=== PATIENT | female | born 1990 | race Caucasian/White ===

== ENCOUNTER 2020-09-24 18:03 | Inpatient (IN) | payer BC ==
[2020-09-24] MEDS ORDERED: Methylergonovine 0.2 MG/1 ML Amp IM PRN (18:27)
[2020-09-24] MEDS ORDERED: Terbutaline 1 MG/ML SDV SUBCUT PRN (18:27)
[2020-09-24] MEDS ORDERED: Water For Irrigation,Sterile 1,000 ML Container IRR PRN (18:27)
[2020-09-24] MEDS ORDERED: Misoprostol 200 MCG Tab PO PRN (18:27)
[2020-09-24] MEDS ORDERED: Nalbuphine 10 MG/1 ML Vial IVPUSH PRN (18:27)
[2020-09-24] MEDS ORDERED: Sodium Chloride 0.9% 10 ML SDV IV PRN (18:27)
[2020-09-24] MEDS ORDERED: Butorphanol 1 MG/ML SDV IVPUSH PRN (18:27)
[2020-09-24] MEDS ORDERED: Misoprostol 25 MCG (1/4 of 100 MCG) Tab VAG PRN (18:27)
[2020-09-24] MEDS ORDERED: Ondansetron 4 MG/2 ML SDV IVPUSH PRN (18:27)
[2020-09-24] MEDS ORDERED: Tranexamic Acid 1,000 MG in Sodium Chloride 0.9% 100 ML IV PRN (18:27)
[2020-09-24] MEDS ORDERED: Lidocaine 1% 50 ML MDV INJECT PRN (18:27)
[2020-09-24] MEDS ORDERED: Sodium Chloride 0.9% 10 ML Syringe FLUSH PRN (18:27)
[2020-09-24] MEDS ORDERED: Sodium Chloride 0.9% 2.5 ML Syringe FLUSH PRN (18:27)
[2020-09-24] MEDS ORDERED: Carboprost Tromethamine 250 MCG/1 ML Amp IM PRN (18:27)
[2020-09-24] MEDS ORDERED: Oxytocin/0.9 % Sodium Chloride 30 UNIT/500 ML BAG IV SCH ×2 (18:30)
[2020-09-25] MEDS: Misoprostol 25 MCG (1/4 of 100 MCG) Tab VAG PRN ×3 (00:43→09:49)
[2020-09-25] MEDS: Lactated Ringers 1,000 ML IV SCH ×3 (09:48→20:57)
[2020-09-25] MEDS ORDERED: Citric Acid/Sodium Citrate Solution 30 ML Cup PO ONE (17:04)
[2020-09-25] MEDS ORDERED: ceFAZolin 1 GM in Premix Bag 1 BAG IV ONE (17:13)
[2020-09-25] MEDS ORDERED: ceFAZolin 2 GM in Premix Bag 1 BAG IV ONE (17:13)
[2020-09-25] MEDS ORDERED: Morphine PF 10 MG/10 ML SDV ONE (17:14)
[2020-09-25] MEDS ORDERED: Lactated Ringers 1,000 ML IV SCH (17:15)
[2020-09-25] MEDS ORDERED: Oxytocin/0.9 % Sodium Chloride 30 UNIT/500 ML BAG IV SCH (17:15)
--- NOTE | 2020-09-25 17:21 | PCM.PREANE ---
Preanesthetic Assessment - Procedure Proposed Procedure: CS for non-reassuring heart tones. - Anesthesia/Transfusion/Family Hx Anesthesia History: No Prior Anesthesia (Local anesthetic for tooth extraction without incident) Family History of Anesthesia Reaction: No (Mom was "hard to put to sleep" and "took a lot" but no true anesthesia reactions) Transfusion History: No Prior Transfusion(s) Additional History: oligohydraminos with current . Obesity with increased neck circumference. - Review of Systems General: No Symptoms Pulmonary: No Symptoms Cardiovascular: No Symptoms Gastrointestinal: No Symptoms Neurological: No Symptoms Other: Reports: None - Physical Assessment NPO Status Date: 09/25/20 (1100 for food, 1500 for clears) NPO Status Time: 11:00 Vital Signs: Last Vital Signs Temp 36.7 C 09/25/20 09:12 Pulse 89 09/25/20 09:12 Resp 20 09/25/20 09:12 BP 112/58 L 09/25/20 09:12 Pulse Ox 94 L 09/25/20 09:12 Height: 1.71 m Weight: 143.789 kg ASA Class: 2E Mental Status: Alert & Oriented x3 Dentition: Reports: Normal Dentition Thyro-Mental Finger Breadths: 4 Mouth Opening Finger Breadths: 3 ROM/Head Extension: Full Lungs: Normal Respiratory Effort Cardiovascular: Regular Rate, Regular Rhythm - Lab Values: Laboratory Last Values WBC 7.91 K/uL (4.0-11.0) 09/24/20 18:46 RBC 4.11 M/uL (4.30-5.90) L 09/24/20 18:46 Hgb 11.5 g/dL (12.0-16.0) L 09/24/20 18:46 Hct 34.5 % (36.0-46.0) L 09/24/20 18:46 MCV 83.9 fL (80.0-98.0) 09/24/20 18:46 MCH 28.0 pg (27.0-32.0) 09/24/20 18:46 MCHC 33.3 g/dL (31.0-37.0) 09/24/20 18:46 RDW Std Deviation 43.7 fl (28.0-62.0) 09/24/20 18:46 RDW Coeff of Gregoria 14 % (11.0-15.0) 09/24/20 18:46 Plt Count 326 K/uL (150-400) 09/24/20 18:46 MPV 10.80 fL (7.40-12.00) 09/24/20 18:46 Nucleated RBC % 0.0 /100WBC 09/24/20 18:46 Nucleated RBCs # 0 K/uL 09/24/20 18:46 SARS-CoV-2 RNA (OSORIO) NEGATIVE (NEGATIVE) 09/24/20 18:21 Blood Type B POSITIVE 09/24/20 21:24 Antibody Screen NEGATIVE 09/24/20 21:24 - Allergies Allergies/Adverse Reactions: Allergies Allergy/AdvReac Type Severity Reaction Status Date / Time cat dander Allergy Difficulty Verified 09/24/20 19:46 Breathing dog dander Allergy Difficulty Verified 09/24/20 19:46 Breathing - Blood Blood Available: Yes - Anesthesia Plan Pre-Op Medication Ordered: None - Acknowledgements Anesthesia Type Planned: Spinal Pt an Appropriate Candidate for the Planned Anesthesia: Yes Alternatives and Risks of Anesthesia Discussed w Pt/Guardian: Yes Pt/Guardian Understands and Agrees with Anesthesia Plan: Yes Additional Comments: Discussed spinal anesthesia, as well as possibility of GA with patient and S.O.. Described risks, benefits, procedure, alternatives, and anesthesia recovery. All questions answered and concerns addressed. Consent signed with RN witness. 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 DOCUMENTATION SPEC History: Reports: , Spontaneous Musculoskeletal History: Reports: Fracture, Other (See Below) Other Musculoskeletal History: right foot fracture at age 6 years - Infectious Disease History Infectious Disease History: Reports: Chicken Pox - Past Surgical History HEENT Surgical History: Reports: None Musculoskeletal Surgical History: Reports: None - SUBSTANCE USE Tobacco Use Status *Q: Former Tobacco User Tobacco Use Within Last Twelve Months: Cigarettes Second Hand Smoke Exposure: No Recreational Drug Use History: No - HOME MEDS Home Medications: Home Meds Vits #93/Iron Fum/FA [ Formula Tablet] 1 each PO DAILY 09/24/20 [History] - CURRENT (IN HOUSE) MEDS Current Meds: Current Medications Butorphanol Tartrate (Butorphanol 1 Mg/Ml Sdv) 1 mg IVPUSH Q1H PRN PRN Reason: Pain Carboprost Tromethamine (Carboprost Tromethamine 250 Mcg/1 Ml Amp) 250 mcg IM ASDIRECTED PRN PRN Reason: Post Hemorrhage Oxytocin/Sodium Chloride (Oxytocin 30 Unit/500 Ml-Ns) 30 unit in 500 mls @ 500 mls/hr IV TITRATE ALISTAIR Tranexamic Acid 1,000 mg/ (Sodium Chloride) 110 mls @ 660 mls/hr IV ONETIME PRN PRN Reason: Bleeding Oxytocin/Sodium Chloride (Oxytocin 30 Unit/500 Ml-Ns) 30 unit in 500 mls @ 2 mls/hr IV TITRATE ALISTAIR; Protocol Last Admin: 09/25/20 15:27 Dose: 2 munits/min, 2 mls/hr Documented by: Lactated Ringer's (Ringers, Lactated) 1,000 mls @ 150 mls/hr IV ASDIRECTED ALISTAIR Last Admin: 09/25/20 16:40 Dose: 150 mls/hr Documented by: Lactated Ringer's (Ringers, Lactated) 1,000 mls @ 500 mls/hr IV BOLUS ALISTAIR Oxytocin/Sodium Chloride (Oxytocin 30 Unit/500 Ml-Ns) 30 unit in 500 mls @ 250 mls/hr IV TITRATE ALISTAIR Cefazolin Sodium/Dextrose 1 gm (/ Premix) 50 mls @ 100 mls/hr IV ONETIME ONE Stop: 09/25/20 17:42 Cefazolin Sodium/Dextrose 2 gm (/ Premix) 50 mls @ 100 mls/hr IV ONETIME ONE Stop: 09/25/20 17:42 Lidocaine HCl (Lidocaine 1% 50 Ml Mdv) 50 ml INJECT ONETIME PRN PRN Reason: Laceration repair Methylergonovine Maleate (Methylergonovine 0.2 Mg/1 Ml Amp) 0.2 mg IM ASDIRECTED PRN PRN Reason: Post Hemorrhage Misoprostol (Misoprostol 200 Mcg Tab) 200 mcg PO ONETIME PRN PRN Reason: Post Hemorrhage Misoprostol (Misoprostol 25 Mcg (1/4 Of 100 Mcg) Tab) 25 mcg VAG ONETIME PRN PRN Reason: Cervical Ripening Last Admin: 09/24/20 20:35 Dose: 25 mcg Documented by: Misoprostol (Misoprostol 25 Mcg (1/4 Of 100 Mcg) Tab) 25 mcg VAG Q4H PRN PRN Reason: Cervical Ripening Last Admin: 09/25/20 09:49 Dose: 25 mcg Documented by: Nalbuphine HCl (Nalbuphine 10 Mg/1 Ml Vial) 10 mg IVPUSH Q1H PRN PRN Reason: Pain (severe 7-10) Ondansetron HCl (Ondansetron 4 Mg/2 Ml Sdv) 4 mg IVPUSH Q6H PRN PRN Reason: Nausea/Vomiting Sodium Chloride (Sodium Chloride 0.9% 10 Ml Syringe) 10 ml FLUSH ASDIRECTED PRN PRN Reason: Keep Vein Open Sodium Chloride (Sodium Chloride 0.9% 2.5 Ml Syringe) 2.5 ml FLUSH ASDIRECTED PRN PRN Reason: Keep Vein Open Sodium Chloride (Sodium Chloride 0.9% 10 Ml Sdv) 10 ml IV ASDIRECTED PRN PRN Reason: IV Use Sterile Water (Water For Irrigation,Sterile 1,000 Ml Container) 1,000 ml IRR ASDIRECTED PRN PRN Reason: delivery Terbutaline Sulfate (Terbutaline 1 Mg/Ml Sdv) 0.25 mg SUBCUT ASDIRECTED PRN PRN Reason: Tacysystole Discontinued Medications Citric Acid/Sodium Citrate (Citric Acid/Sodium Citrate Solution 30 Ml Cup) 30 m l PO ONETIME ONE Stop: 09/25/20 17:05 Morphine Sulfate (Morphine Pf 10 Mg/10 Ml Sdv) Confirm Administered Dose 10 mg .ROUTE .STK-MED ONE Stop: 09/25/20 17:15
[2020-09-25] MEDS ORDERED: fentaNYL 100 MCG/2 ML SDV ONE (17:24)
[2020-09-25] MEDS ORDERED: Dexamethasone 4 MG/ML 5 ML MDV ONE (17:25)
[2020-09-25] MEDS ORDERED: Propofol 200 MG/20 ML SDV ONE (17:25)
[2020-09-25] MEDS ORDERED: Ketorolac 30 MG/ML SDV ONE (17:25)
[2020-09-25] MEDS ORDERED: Ondansetron 4 MG/2 ML SDV ONE (17:25)
[2020-09-25] MEDS ORDERED: Sodium Chloride 0.9% 20 ML ONE (17:26)
[2020-09-25] MEDS ORDERED: ceFAZolin 1 GM Vial ONE (17:26)
[2020-09-25] MEDS ORDERED: ePHEDrine 50 MG/ML SDV ONE (17:57)
[2020-09-25] MEDS ORDERED: Lanolin 100% Cream 7 GM Tube TOP PRN (18:43)
[2020-09-25] MEDS ORDERED: diphenhydrAMINE 50 MG/ML SDV IVPUSH PRN (18:43)
[2020-09-25] MEDS ORDERED: Acetaminophen/oxyCODONE 325-5 MG Tab PO PRN (18:43)
[2020-09-25] MEDS ORDERED: Ondansetron 4 MG/2 ML SDV IVPUSH PRN (18:43)
[2020-09-25] MEDS ORDERED: Bisacodyl 10 MG Supp RECTAL PRN (18:43)
[2020-09-25] MEDS ORDERED: Oxytocin 10 Units/1 ML SDV IM PRN (18:43)
[2020-09-25] MEDS ORDERED: Oxytocin/Lactated Ringers 30 UNIT/500 ML BAG IV SCH (18:45)
[2020-09-25] MEDS: Ketorolac 30 MG/ML SDV IVPUSH SCH ×2 (18:45→23:51)
--- NOTE | 2020-09-25 19:03 | PCM.OPNOTE ---
- General Post-Op/Procedure Note Date of Surgery/Procedure: 09/25/20 Operative Procedure(s): Primary low-transverse section Findings: Live male infant, cephalic presentation, Apgars 5/8, weight 3610g, umbilical cord gases pending Normal-appearing uterus, ovaries, and tubes Pre Op Diagnosis: 30yo @ 40w2d. intolerance of labor, persistent category 2 heart tones. Induction of labor for oligohydramnios. Maternal obesity Post-Op Diagnosis: 30yo @ 40w2d. intolerance of labor, persistent category 2 heart tones. Induction of labor for oligohydramnios. Maternal obesity Anesthesia Technique: Spinal Primary Surgeon: Adilene Macias Anesthesia Provider: Marcus Fontana Pathology: Placenta, umbilical cord gases, umbilical cord blood Fluid Replacement, Intraop: 800 Output, Urine Amount: 500 EBL in mLs: 500 Complications: None Condition: Good Free Text/Narrative:: 3g Ancef given for antibiotic prophylaxis
--- NOTE | 2020-09-25 19:33 | PCM.POSTAN ---
POST ANESTHESIA ASSESSMENT - MENTAL STATUS Mental Status: Alert, Oriented - VITAL SIGNS Vital Signs: Last Vital Signs Temp 36.7 C 09/25/20 09:12 Pulse 89 09/25/20 09:12 Resp 20 09/25/20 09:12 BP 112/58 L 09/25/20 09:12 Pulse Ox 94 L 09/25/20 09:12 - RESPIRATORY Respiratory Status: Respiratory Rate WNL, Airway Patent, O2 Saturation Stable - CARDIOVASCULAR CV Status: Pulse Rate WNL, Blood Pressure Stable - GASTROINTESTINAL GI Status: No Symptoms - PAIN Pain Score: 2 (Mild upper abd pain (tolerable)) - POST OP HYDRATION Hydration Status: Adequate & Stable Free Text/Narrative:: Taking clear liquids without nausea, IV fluid infusing. - OBSERVATIONS Free Text/Narrative:: Sitting up in bed and breast feeding. Adequate pain control. Spinal level regressing (T10 level)
[2020-09-25] MEDS: Docusate Sodium 100 MG Cap PO SCH (20:58)
--- NOTE | 2020-09-25 22:15 | OR ---
SURGEON: Adilene Macias MD DATE OF PROCEDURE: 09/25/2020 PREOPERATIVE DIAGNOSES: 1. 30-year-old G2, P-0-0-1-0 at 40 weeks and 2 days' gestation. 2. Induction of labor for oligohydramnios. 3. intolerance of labor with persistent category 2 heart tones. 4. Maternal obesity. POSTOPERATIVE DIAGNOSES: 1. 30-year-old G2, P-0-0-1-0 at 40 weeks and 2 days' gestation. 2. Induction of labor for oligohydramnios. 3. intolerance of labor with persistent category 2 heart tones. 4. Maternal obesity. PROCEDURE: Primary low transverse section. PRIMARY SURGEON: Adilene Macias MD ANESTHESIA: Spinal by Dr. Billy Fontana. ESTIMATED BLOOD LOSS: 500 mL. IV FLUIDS: 800 mL LR. URINE OUTPUT: 500 mL of clear yellow urine. ANTIBIOTIC PROPHYLAXIS: 2 g Ancef IV. FINDINGS: Live male in cephalic presentation. scores 5 and 8 at one and five minutes respectively. Weight 3610 g. Normal-appearing uterus, ovaries, and tubes. INDICATION: This is a 30-year-old G2, P0-0-1-0, who presented at 40 weeks and 1 day gestation from clinic for induction of labor due to oligohydramnios. She was undergoing biophysical profile and nonstress testing for maternal obesity. Her amniotic fluid index was 4 cm. Upon presentation to Labor and Delivery, her cervix was found to be 1 cm dilated. She was started on Cytotec for cervical ripening. She received 4 doses of Cytotec and was jose. After each dose of Cytotec, she would have late decelerations for roughly 1 hour that would resolve spontaneously. She underwent artificial rupture of membranes with clear fluid noted at 3 cm dilated. Intrauterine pressure catheter and scalp electrode were placed. Pitocin was started. After starting the Pitocin, heart tones were in the 150s with recurrent late and variable decelerations that were unresponsive to IV fluids and maternal repositioning. With persistence of these category 2 heart tones and minimal cervical change on 2 units of Pitocin, the decision was made to proceed with primary delivery. The risks and benefits were also discussed with the patient prior to . DESCRIPTION OF PROCEDURE: The patient was taken to the operating room, where spinal anesthesia was obtained without difficulty. She was placed in dorsal supine position with a leftward tilt. She was prepared and draped in a normal sterile fashion. A Pfannenstiel skin incision was made with a scalpel and carried through to the underlying layer of fascia. Fascia was incised in the midline and was extended laterally with curved Majano scissors. The superior aspect of the fascial incision was grasped with Richard clamps, elevated, and underlying rectus muscles dissected off bluntly. In a similar fashion, anterior aspect of the fascial incision was grasped with Richard clamps, elevated, underlying rectus muscles were dissected off bluntly. The peritoneum was identified in the midline and entered bluntly with a digit. The peritoneal incision was extended using manual traction. Next, a large Jay retractor was placed. A low uterine hysterotomy was created with a scalpel. The hysterotomy was extended using manual traction. The infant's head was delivered atraumatically followed by the remainder of body. After approximately 30 seconds, the cord was clamped and cut and the infant was handed off to awaiting nurse and venetian blind maker. Cord gases and cord blood were obtained. The placenta then delivered intact with 3-vessel cord with manual traction and uterine massage. The uterus was cleared of all clots and debris. The uterine incision was repaired with a running lock stitch of 0 Vicryl suture. A second stitch of the same suture was used to obtain hemostasis. The uterus was returned to the abdomen, and the incision was inspected, and noted to be hemostatic. The Jay retractor was removed. The vaginal incision was closed with a running stitch of 0 Vicryl suture. The subcutaneous tissue was closed with a running stitch of 3-0 Vicryl suture. Skin was closed with 4-0 Monocryl in subcuticular fashion, and the incision was covered with Steri-Strips and a pressure dressing. The patient and tolerated the delivery well. All sponge, lap, and needle counts were correct x3. [id number] / MODL /[id number] TAZ
[2020-09-26] MEDS: Lactated Ringers 1,000 ML IV SCH (05:09)
[2020-09-26] MEDS: Ketorolac 30 MG/ML SDV IVPUSH SCH ×3 (06:47→19:00)
--- NOTE | 2020-09-26 10:06 | PCM.PNPP ---
- General Info Date of Service: 09/26/20 Subjective Update: Able to tolerate breakfast this morning without nausea. Has not ambulated or voided yet; grimaldo still in place. Functional Status: Reports: Pain Controlled, Tolerating Diet - Review of Systems General: Reports: No Symptoms HEENT: Reports: No Symptoms Pulmonary: Reports: No Symptoms Cardiovascular: Reports: No Symptoms Gastrointestinal: Reports: No Symptoms Genitourinary: Reports: No Symptoms Musculoskeletal: Reports: No Symptoms Skin: Reports: No Symptoms Neurological: Reports: No Symptoms Psychiatric: Reports: No Symptoms - Patient Data Vital Signs - Most Recent: Last Vital Signs Temp 36.2 C 09/26/20 08:00 Pulse 63 09/26/20 08:00 Resp 18 09/26/20 08:00 BP 109/68 09/26/20 08:00 Pulse Ox 96 09/26/20 08:00 Weight - Most Recent: 143.789 kg I&O - Last 24 Hours: Intake & Output 09/25/20 09/26/20 09/26/20 22:59 06:59 14:59 Intake Total 800 2402 Output Total 50 300 Balance 30@ 2102 @ Lab Results - Last 24 Hours: Laboratory Results - last 24 hr 09/25/20 09/26/20 Range/Units 18:03 05:10 Hgb 10.5 L (12.0-16.0) g/dL Hct 31.4 L (36.0-46.0) % Cord ABG pH 7.106 L (7.18-7.38) Cord ABG Base Excess -4 (-10--2) Cord VBG pH 7.266 (7.25-7.45) Cord VBG Base Excess -3 (-10--2) Med Orders - Current: Current Medications Bisacodyl (Bisacodyl 10 Mg Supp) 10 mg RECTAL ONETIME PRN PRN Reason: Constipation Butorphanol Tartrate (Butorphanol 1 Mg/Ml Sdv) 1 mg IVPUSH Q1H PRN PRN Reason: Pain Carboprost Tromethamine (Carboprost Tromethamine 250 Mcg/1 Ml Amp) 250 mcg IM ASDIRECTED PRN PRN Reason: Post Hemorrhage Diphenhydramine HCl (Diphenhydramine 50 Mg/Ml Sdv) 25 mg IVPUSH Q6H PRN PRN Reason: Itching or Nausea Last Admin: 05/22/21 03:23 Dose: 25 mg Documented by: Docusate Sodium (Docusate Sodium 100 Mg Cap) 100 mg PO BID [facility] Last Admin: 09/25/20 20:58 Dose: 100 mg Documented by: Emollient Ointment (Lanolin 100% Cream 7 Gm Tube) 0 gm TOP ASDIRECTED PRN PRN Reason: Sore Nipples Last Admin: 09/25/20 20:58 Dose: 7 gm Documented by: Oxytocin/Sodium Chloride (Oxytocin 30 Unit/500 Ml-Ns) 30 unit in 500 mls @ 500 mls/hr IV TITRATE ALISTAIR Tranexamic Acid 1,000 mg/ (Sodium Chloride) 110 mls @ 660 mls/hr IV ONETIME PRN PRN Reason: Bleeding Oxytocin/Sodium Chloride (Oxytocin 30 Unit/500 Ml-Ns) 30 unit in 500 mls @ 2 mls/hr IV TITRATE [facility]; Protocol Last Admin: 09/25/20 15:27 Dose: 2 munits/min, 2 mls/hr Documented by: Lactated Ringer's (Ringers, Lactated) 1,000 mls @ 150 mls/hr IV ASDIRECTED [facility] Last Admin: 09/25/20 16:40 Dose: 150 mls/hr Documented by: Lactated Ringer's (Ringers, Lactated) 1,000 mls @ 500 mls/hr IV BOLUS ALISTAIR Oxytocin/Sodium Chloride (Oxytocin 30 Unit/500 Ml-Ns) 30 unit in 500 mls @ 250 mls/hr IV TITRATE ALISTAIR Lactated Ringer's (Ringers, Lactated) 1,000 mls @ 125 mls/hr IV ASDIRECTED [facility] Last Admin: 09/26/20 05:09 Dose: 125 mls/hr Documented by: Oxytocin/Lactated Ringer's (Pitocin In Lr 30 Units/500 Ml) 30 unit in 500 mls @ 999 mls/hr IV TITRATE [facility]; Protocol Ibuprofen (Ibuprofen 800 Mg Tab) 800 mg PO Q8H PRN PRN Reason: mild pain or fever Ketorolac Tromethamine (Ketorolac 30 Mg/Ml Sdv) 30 mg IVPUSH Q6H [facility] Stop: 09/26/20 18:46 Last Admin: 09/26/20 06:47 Dose: 30 mg Documented by: Lidocaine HCl (Lidocaine 1% 50 Ml Mdv) 50 ml INJECT ONETIME PRN PRN Reason: Laceration repair Methylergonovine Maleate (Methylergonovine 0.2 Mg/1 Ml Amp) 0.2 mg IM ASDIRECTED PRN PRN Reason: Post Hemorrhage Misoprostol (Misoprostol 200 Mcg Tab) 200 mcg PO ONETIME PRN PRN Reason: Post Hemorrhage Misoprostol (Misoprostol 25 Mcg (1/4 Of 100 Mcg) Tab) 25 mcg VAG ONETIME PRN PRN Reason: Cervical Ripening Last Admin: 09/24/20 20:35 Dose: 25 mcg Documented by: Misoprostol (Misoprostol 25 Mcg (1/4 Of 100 Mcg) Tab) 25 mcg VAG Q4H PRN PRN Reason: Cervical Ripening Last Admin: 09/25/20 09:49 Dose: 25 mcg Documented by: Nalbuphine HCl (Nalbuphine 10 Mg/1 Ml Vial) 10 mg IVPUSH Q1H PRN PRN Reason: Pain (severe 7-10) Ondansetron HCl (Ondansetron 4 Mg/2 Ml Sdv) 4 mg IVPUSH Q6H PRN PRN Reason: Nausea/Vomiting Last Admin: 09/25/20 23:50 Dose: 4 mg Documented by: Ondansetron HCl (Ondansetron 4 Mg/2 Ml Sdv) 4 mg IVPUSH Q4H PRN PRN Reason: Nausea/Vomiting Oxycodone/Acetaminophen (Acetaminophen/Oxycodone 325-5 Mg Tab) 1 tab PO Q4H PRN PRN Reason: Pain (severe 7-10) Oxycodone/Acetaminophen (Acetaminophen/Oxycodone 325-5 Mg Tab) 2 tab PO Q4H PRN PRN Reason: Pain (severe 7-10) Oxytocin (Oxytocin 10 Units/1 Ml Sdv) 10 unit IM ASDIRECTED PRN PRN Reason: Excessive Vaginal Bleeding Sodium Chloride (Sodium Chloride 0.9% 10 Ml Syringe) 10 ml FLUSH ASDIRECTED PRN PRN Reason: Keep Vein Open Sodium Chloride (Sodium Chloride 0.9% 2.5 Ml Syringe) 2.5 ml FLUSH ASDIRECTED PRN PRN Reason: Keep Vein Open Sodium Chloride (Sodium Chloride 0.9% 10 Ml Sdv) 10 ml IV ASDIRECTED PRN PRN Reason: IV Use Sterile Water (Water For Irrigation,Sterile 1,000 Ml Container) 1,000 ml IRR ASDIRECTED PRN PRN Reason: delivery Terbutaline Sulfate (Terbutaline 1 Mg/Ml Sdv) 0.25 mg SUBCUT ASDIRECTED PRN PRN Reason: Tacysystole Discontinued Medications Cefazolin Sodium (Cefazolin 1 Gm Vial) Confirm Administered Dose 1 gm .ROUTE .STK-MED ONE Stop: 09/25/20 17:27 Citric Acid/Sodium Citrate (Citric Acid/Sodium Citrate Solution 30 Ml Cup) 30 ml PO ONETIME ONE Stop: 09/25/20 17:05 Dexamethasone (Dexamethasone 4 Mg/Ml 5 Ml Mdv) Confirm Administered Dose 20 mg .ROUTE .STK-MED ONE Stop: 09/25/20 17:26 Ephedrine Sulfate (Ephedrine 50 Mg/Ml Sdv) Confirm Administered Dose 50 mg .ROUTE .STK-MED ONE Stop: 09/25/20 17:58 Fentanyl (Fentanyl 100 Mcg/2 Ml Sdv) Confirm Administered Dose 100 mcg .ROUTE .STK-MED ONE Stop: 09/25/20 17:25 Cefazolin Sodium/Dextrose 1 gm (/ Premix) 50 mls @ 100 mls/hr IV ONETIME ONE Stop: 09/25/20 17:42 Cefazolin Sodium/Dextrose 2 gm (/ Premix) 50 mls @ 100 mls/hr IV ONETIME ONE Stop: 09/25/20 17:42 Cefazolin Sodium/Dextrose (Ancef 2 Gm/50 Ml) Confirm Administered Dose 50 mls @ as directed .ROUTE .STK-MED ONE Stop: 09/25/20 17:27 Sodium Chloride (Normal Saline) Confirm Administered Dose 20 mls @ as directed .ROUTE .STK-MED ONE Stop: 09/25/20 17:27 Ketorolac Tromethamine (Ketorolac 30 Mg/Ml Sdv) Confirm Administered Dose 30 mg .ROUTE .STK-MED ONE Stop: 09/25/20 17:26 Morphine Sulfate (Morphine Pf 10 Mg/10 Ml Sdv) Confirm Administered Dose 10 mg .ROUTE .STK-MED ONE Stop: 09/25/20 17:15 Ondansetron HCl (Ondansetron 4 Mg/2 Ml Sdv) Confirm Administered Dose 4 mg .ROUTE .STK-MED ONE Stop: 09/25/20 17:26 Propofol (Propofol 200 Mg/20 Ml Sdv) Confirm Administered Dose 200 mg .ROUTE .K-MED ONE Stop: 09/25/20 17:26 - Infant Interaction Disposition, : [place] in Room with Family Interaction: Holding Feeding: Attempted ; Nursed Fair/Poor Support Person: Significant Other - Recovery Exam Fundal Tone: Firm Fundal Level: At Umbilicus Fundal Placement: Midline Lochia Amount: Small Lochia Color: Rubra/Red Bladder Status: Indwelling Catheter in Place Urinary Elimination: Indwelling Catheter - Exam General: Alert, Oriented Neck: Supple Lungs: Normal Respiratory Effort GI/Abdominal Exam: Soft, No Distention, Tender (appropriate tenderness to palpation) Extremities: Non-Tender, No Pedal Edema Skin: Warm, Dry, Intact Wound/Incisions: Dressing Dry and Intact Neurological: No New Focal Deficit Psy/Mental Status: Alert, Normal Affect, Normal Mood - Problem List & Annotations (1) S/P primary low transverse SNOMED Code(s): 417130602, 87201088, [id number], [id number], [id number] Code(s): Z98.891 - HISTORY OF UTERINE SCAR FROM PREVIOUS SURGERY Status: Acute Current Visit: Yes (2) Obesity complicating , childbirth, or puerperium, antepartum SNOMED Code(s): 452467297997, 683415612884 Code(s): O99.210 - OBESITY COMPLICATING , UNSPECIFIED TRIMESTER Status: Acute Current Visit: Yes - Problem List Review Problem List Initiated/Reviewed/Updated: Yes - My Orders Last 24 Hours: My Active Orders 09/25/20 Dinner Regular Diet [DIET] 09/25/20 17:04 Verify Patient Consent Obtain [RC] ASDIRECTED Schedule Procedure [COMM] Per Unit Routine 09/25/20 17:15 Lactated Ringers [Ringers, Lactated] 1,000 ml IV BOLUS Oxytocin/0.9 % Sodium Chloride [Oxytocin 30 Unit/500 ML-NS] 30 unit in 500 ml IV TITRATE 09/25/20 18:43 Notify Provider Intake and Out [RC] ASDIRECTED Notify Provider Vital Signs [RC] ASDIRECTED Urinary Catheter Removal [RC] PER UNIT ROUTINE Acetaminophen/oxyCODONE [Percocet 325-5 MG] 1 tab PO Q4H PRN Acetaminophen/oxyCODONE [Percocet 325-5 MG] 2 tab PO Q4H PRN Lanolin [Lansinoh HPA] See Dose Instructions TOP ASDIRECTED PRN Ondansetron [Zofran] 4 mg IVPUSH Q4H PRN Oxytocin [Pitocin] 10 unit IM ASDIRECTED PRN bisacodyL [Dulcolax] 10 mg RECTAL ONETIME PRN diphenhydrAMINE [Benadryl] 25 mg IVPUSH Q6H PRN DVT/VTE Prophylaxis Reflex [OM.PC] Routine 09/25/20 18:45 Ketorolac [Toradol] 30 mg IVPUSH Q6H Lactated Ringers [Ringers, Lactated] 1,000 ml IV ASDIRECTED Oxytocin/Lactated Ringers [Pitocin in LR 30 Units/500 ML] 30 unit in 500 ml IV TITRATE 09/25/20 18:49 Patient Status [ADT] Routine Ambulate [RC] PER UNIT ROUTINE Antiembolic Devices [RC] PER UNIT ROUTINE Communication Order [RC] PER UNIT ROUTINE Communication Order [RC] PER UNIT ROUTINE Communication Order [RC] Per Unit Routine May Shower [RC] ASDIRECTED RT Incentive Spirometry [RC] Q2HWA Vital Signs [RC] PER UNIT ROUTINE Assess Lochia [WOMSER] Per Unit Routine Assess Uterine Involution [WOMSER] Per Unit Routine Breast Pump [WOMSER] Per Unit Routine Peripheral IV Discontinue [OM.PC] Routine Sequential Compression Device [OM.PC] Per Unit Routine 09/25/20 18:50 Cooling Warming Measures [RC] ASDIRECTED Abdominal Binder [OM.PC] Per Unit Routine Heat Therapy [OM.PC] Per Unit Routine Ice Therapy [OM.PC] Per Unit Routine 09/25/20 18:51 Antiembolic Devices [RC] .Routine VTE/DVT Education [RC] PER UNIT ROUTINE 09/25/20 21:00 Docusate Sodium [Colace] 100 mg PO BID 09/27/20 01:00 Ibuprofen [Motrin] 800 mg PO Q8H PRN - Assessment Assessment:: 30yo P1 s/p 1LTCS at 40w2d for intolerance of labor, POD#1 - Plan Plan:: Remove grimaldo this morning. Encourage ambulation today. Work on pain control today. Rh positive, Rubella immune. Continue to encourage . Plan for circumcision tomorrow if possible. Possible discharge home tomorrow evening if meeting all post-op milestones.
--- NOTE | 2020-09-26 11:50 | PCM48HPAN ---
Post Anesthesia Note - EVALUATION WITHIN 48HRS OF ANESTHETIC Vital Signs in Normal Range: Yes Patient Participated in Evaluation: Yes Respiratory Function Stable: Yes Airway Patent: Yes Cardiovascular Function Stable: Yes Hydration Status Stable: Yes Pain Control Satisfactory: Yes (Denies pain) Nausea and Vomiting Control Satisfactory: Yes (Taking PO well, no nausea since last night around 0300. Ate full breakfast.) Mental Status Recovered: Yes Vital Signs: Last Vital Signs Temp 36.7 C 09/26/20 11:48 Pulse 72 09/26/20 11:48 Resp 18 09/26/20 11:48 BP 102/59 L 09/26/20 11:48 Pulse Ox 94 L 09/26/20 11:48 - COMMENTS/OBSERVATIONS Free Text/Narrative:: Ambulating without assist, reports full return of strength and sensation to BLE.
[2020-09-26] MEDS: Acetaminophen/oxyCODONE 325-5 MG Tab PO PRN (21:28)
[2020-09-26] MEDS: Docusate Sodium 100 MG Cap PO SCH (21:30)
[2020-09-27] MEDS ORDERED: Ibuprofen 800 MG Tab PO PRN (01:00)
[2020-09-27] MEDS: Docusate Sodium 100 MG Cap PO SCH (08:07)
--- NOTE | 2020-09-27 09:09 | PCM.PNPP ---
- General Info Date of Service: 09/27/20 Subjective Update: Patient doing well. Ambulating without dizziness, voiding, passing flatus. Breast and bottle feeding. Minimal lochia. Functional Status: Reports: Pain Controlled, Tolerating Diet, Ambulating, Urinating - Review of Systems General: Reports: No Symptoms HEENT: Reports: No Symptoms Pulmonary: Reports: No Symptoms Cardiovascular: Reports: No Symptoms Gastrointestinal: Reports: No Symptoms Genitourinary: Reports: No Symptoms Musculoskeletal: Reports: No Symptoms Skin: Reports: No Symptoms Neurological: Reports: No Symptoms Psychiatric: Reports: No Symptoms - Patient Data Vital Signs - Most Recent: Last Vital Signs Temp 36.3 C 09/27/20 08:47 Pulse 86 09/27/20 08:47 Resp 16 09/27/20 08:47 BP 129/67 09/27/20 08:47 Pulse Ox 97 09/27/20 08:47 Weight - Most Recent: 143.789 kg Med Orders - Current: Current Medications Bisacodyl (Bisacodyl 10 Mg Supp) 10 mg RECTAL ONETIME PRN PRN Reason: Constipation Butorphanol Tartrate (Butorphanol 1 Mg/Ml Sdv) 1 mg IVPUSH Q1H PRN PRN Reason: Pain Carboprost Tromethamine (Carboprost Tromethamine 250 Mcg/1 Ml Amp) 250 mcg IM ASDIRECTED PRN PRN Reason: Post Hemorrhage Diphenhydramine HCl (Diphenhydramine 50 Mg/Ml Sdv) 25 mg IVPUSH Q6H PRN PRN Reason: Itching or Nausea Last Admin: 09/26/20 03:23 Dose: 25 mg Documented by: Docusate Sodium (Docusate Sodium 100 Mg Cap) 100 mg PO BID [facility] Last Admin: 09/27/20 08:07 Dose: Not Given Documented by: Emollient Ointment (Lanolin 100% Cream 7 Gm Tube) 0 gm TOP ASDIRECTED PRN PRN Reason: Sore Nipples Last Admin: 09/25/20 20:58 Dose: 7 gm Documented by: Oxytocin/Sodium Chloride (Oxytocin 30 Unit/500 Ml-Ns) 30 unit in 500 mls @ 500 mls/hr IV TITRATE [facility] Tranexamic Acid 1,000 mg/ (Sodium Chloride) 110 mls @ 660 mls/hr IV ONETIME PRN PRN Reason: Bleeding Oxytocin/Sodium Chloride (Oxytocin 30 Unit/500 Ml-Ns) 30 unit in 500 mls @ 2 m ls/hr IV TITRATE [facility]; Protocol Last Admin: 09/25/20 15:27 Dose: 2 munits/min, 2 mls/hr Documented by: Lactated Ringer's (Ringers, Lactated) 1,000 mls @ 150 mls/hr IV ASDIRECTED [facility] Last Admin: 09/25/20 16:40 Dose: 150 mls/hr Documented by: Lactated Ringer's (Ringers, Lactated) 1,000 mls @ 500 mls/hr IV BOLUS [facility] Oxytocin/Sodium Chloride (Oxytocin 30 Unit/500 Ml-Ns) 30 unit in 500 mls @ 250 mls/hr IV TITRATE [facility] Lactated Ringer's (Ringers, Lactated) 1,000 mls @ 125 mls/hr IV ASDIRECTED [facility]IR Last Admin: 09/26/20 05:09 Dose: 125 mls/hr Documented by: Oxytocin/Lactated Ringer's (Pitocin In Lr 30 Units/500 Ml) 30 unit in 500 mls @ 999 mls/hr IV TITRATE [facility]; Protocol Ibuprofen (Ibuprofen 800 Mg Tab) 800 mg PO Q8H PRN PRN Reason: mild pain or fever Last Admin: 09/27/20 00:57 Dose: 800 mg Documented by: Lidocaine HCl (Lidocaine 1% 50 Ml Mdv) 50 ml INJECT ONETIME PRN PRN Reason: Laceration repair Methylergonovine Maleate (Methylergonovine 0.2 Mg/1 Ml Amp) 0.2 mg IM ASDI RECTED PRN PRN Reason: Post Hemorrhage Misoprostol (Misoprostol 200 Mcg Tab) 200 mcg PO ONETIME PRN PRN Reason: Post Hemorrhage Misoprostol (Misoprostol 25 Mcg (1/4 Of 100 Mcg) Tab) 25 mcg VAG ONETIME PRN PRN Reason: Cervical Ripening Last Admin: 09/24/20 20:35 Dose: 25 mcg Documented by: Misoprostol (Misoprostol 25 Mcg (1/4 Of 100 Mcg) Tab) 25 mcg VAG Q4H PRN PRN Reason: Cervical Ripening Last Admin: 09/25/20 09:49 Dose: 25 mcg Documented by: Nalbuphine HCl (Nalbuphine 10 Mg/1 Ml Vial) 10 mg IVPUSH Q1H PRN PRN Reason: Pain (severe 7-10) Ondansetron HCl (Ondansetron 4 Mg/2 Ml Sdv) 4 mg IVPUSH Q6H PRN PRN Reason: Nausea/Vomiting Last Admin: 09/25/20 23:50 Dose: 4 mg Documented by: Ondansetron HCl (Ondansetron 4 Mg/2 Ml Sdv) 4 mg IVPUSH Q4H PRN PRN Reason: Nausea/Vomiting Oxycodone/Acetaminophen (Acetaminophen/Oxycodone 325-5 Mg Tab) 1 tab PO Q4H PRN PRN Reason: Pain (severe 7-10) Last Admin: 09/26/20 21:28 Dose: 1 tab Documented by: Oxycodone/Acetaminophen (Acetaminophen/Oxycodone 325-5 Mg Tab) 2 tab PO Q4H PRN PRN Reason: Pain (severe 7-10) Last Admin: 09/27/20 07:09 Dose: 2 tab Documented by: Oxytocin (Oxytocin 10 Units/1 Ml Sdv) 10 unit IM ASDIRECTED PRN PRN Reason: Excessive Vaginal Bleeding Sodium Chloride (Sodium Chloride 0.9% 10 Ml Syringe) 10 ml FLUSH ASDIRECTED PRN PRN Reason: Keep Vein Open Sodium Chloride (Sodium Chloride 0.9% 2.5 Ml Syringe) 2.5 ml FLUSH ASDIRECTED PRN PRN Reason: Keep Vein Open Sodium Chloride (Sodium Chloride 0.9% 10 Ml Sdv) 10 ml IV ASDIRECTED PRN PRN Reason: IV Use Sterile Water (Water For Irrigation,Sterile 1,000 Ml Container) 1,000 ml IRR ASDIRECTED PRN PRN Reason: delivery Terbutaline Sulfate (Terbutaline 1 Mg/Ml Sdv) 0.25 mg SUBCUT ASDIRECTED PRN PRN Reason: Tacysystole Discontinued Medications Cefazolin Sodium (Cefazolin 1 Gm Vial) Confirm Administered Dose 1 gm .ROUTE .STK-MED ONE Stop: 09/25/20 17:27 Citric Acid/Sodium Citrate (Citric Acid/Sodium Citrate Solution 30 Ml Cup) 30 ml PO ONETIME ONE Stop: 09/25/20 17:05 Dexamethasone (Dexamethasone 4 Mg/Ml 5 Ml Mdv) Confirm Administered Dose 20 mg .ROUTE .STK-MED ONE Stop: 09/25/20 17:26 Ephedrine Sulfate (Ephedrine 50 Mg/Ml Sdv) Confirm Administered Dose 50 mg .ROUTE .STK-MED ONE Stop: 09/25/20 17:58 Fentanyl (Fentanyl 100 Mcg/2 Ml Sdv) Confirm Administered Dose 100 mcg .ROUTE .STK-MED ONE Stop: 09/25/20 17:25 Cefazolin Sodium/Dextrose 1 gm (/ Premix) 50 mls @ 100 mls/hr IV ONETIME ONE Stop: 09/25/20 17:42 Cefazolin Sodium/Dextrose 2 gm (/ Premix) 50 mls @ 100 mls/hr IV ONETIME ONE Stop: 09/25/20 17:42 Cefazolin Sodium/Dextrose (Ancef 2 Gm/50 Ml) Confirm Administered Dose 50 mls @ as directed .ROUTE .STK-MED ONE Stop: 09/25/20 17:27 Sodium Chloride (Normal Saline) Confirm Administered Dose 20 mls @ as directed .ROUTE .STK-MED ONE Stop: 09/25/20 17:27 Ketorolac Tromethamine (Ketorolac 30 Mg/Ml Sdv) Confirm Administered Dose 30 mg .ROUTE .STK-MED ONE Stop: 09/25/20 17:26 Ketorolac Tromethamine (Ketorolac 30 Mg/Ml Sdv) 30 mg IVPUSH Q6H [facility] Stop: 09/26/20 18:46 Last Admin: 09/26/20 19:00 Dose: 30 mg Documented by: Morphine Sulfate (Morphine Pf 10 Mg/10 Ml Sdv) Confirm Administered Dose 10 mg .ROUTE .STK-MED ONE Stop: 09/25/20 17:15 Ondansetron HCl (Ondansetron 4 Mg/2 Ml Sdv) Confirm Administered Dose 4 mg .ROUTE .STK-MED ONE Stop: 09/25/20 17:26 Propofol (Propofol 200 Mg/20 Ml Sdv) Confirm Administered Dose 200 mg .ROUTE .STK-MED ONE Stop: 09/25/20 17:26 - Infant Interaction Infant Disposition, : [place] in Room with Family Interaction: Holding Infant Infant Feeding: Attempted ; Nursed Fair/Poor, Bottle Fed Support Person: Significant Other - Recovery Exam Fundal Tone: Firm Fundal Level: 1 Fingerbreadths Below Umbilicus Fundal Placement: Midline Lochia Amount: Small Episiotomy/Laceration: None Bladder Status: Voiding Urinary Elimination: Voided - Exam General: Alert, Oriented Neck: Supple Lungs: Normal Respiratory Effort GI/Abdominal Exam: Soft, Non-Tender, No Distention Extremities: Non-Tender, No Pedal Edema Skin: Warm, Dry, Intact Wound/Incisions: Healing Well, No Drainage Neurological: No New Focal Deficit Psy/Mental Status: Alert, Normal Affect, Normal Mood - Problem List & Annotations (1) S/P primary low transverse SNOMED Code(s): 462973988, [id number], 295316521, 966482593, 791778434 Code(s): Z98.891 - HISTORY OF UTERINE SCAR FROM PREVIOUS SURGERY Status: Acute Current Visit: Yes (2) Obesity complicating , childbirth, or puerperium, antepartum SNOMED Code(s): 184368099214, 010288776013 Code(s): O99.210 - OBESITY COMPLICATING , UNSPECIFIED TRIMESTER Status: Acute Current Visit: Yes - Problem List Review Problem List Initiated/Reviewed/Updated: Yes - My Orders Last 24 Hours: My Active Orders 09/27/20 01:00 Ibuprofen [Motrin] 800 mg PO Q8H PRN 09/27/20 09:04 Ready for Discharge [RC] PER UNIT ROUTINE - Assessment Assessment:: 30yo P1 s/p 1LTCS at 40w2d for intolerance of labor, POD#2 - Plan Plan:: Continue routine care. Rh positive, Rubella immune. Continue to encourage . Plan for circumcision today. Will discharge home this afternoon. Reviewed discharge instructions/precautions. All questions answered.
[2020-09-27] MEDS: Acetaminophen/oxyCODONE 325-5 MG Tab PO PRN (12:23)
== END 2020-09-27 17:00 | disposition home or self-care (01) | DRG 540 ==
LOC: MW.OB 18:03 → OBSVTOIN 09-25 18:03 → MW.OB 09-25 23:07
PROVIDERS: ADMIT Obstetrics & Gynecology; ATTEND Obstetrics & Gynecology
PROC: 10D00Z1 Extraction of Products of Conception, Low, Open Approach (ICD-10-PCS; principal; 2020-09-25)
DX: O41.03X0 Oligohydramnios, third trimester, not applicable or unspecified (principal); O76 Abnormality in fetal heart rate and rhythm complicating labor and delivery; O99.214 Obesity complicating childbirth; E66.9 Obesity, unspecified; Z3A.40 40 weeks gestation of pregnancy; Z37.0 Single live birth; Z20.822 Contact with and (suspected) exposure to COVID-19
CPT/HCPCS: 36415; 59025; 82803; 85014; 85018; 85027; 86592; 86850; 86900; 86901; A9270-GY; J0690; J1100; J1200; J1885; J2270; J2405; J2590; J2704; J3010; J7120; U0002

== ENCOUNTER 2020-12-28 06:35 | Day surgery (SDC) | payer BC ==
[~2020-12-28 06:35] MED LIST: Lactated Ringers 1,000 ML IV SCH
[2020-12-28] MEDS ORDERED: Dexamethasone 4 MG/ML 5 ML MDV ONE (07:07)
[2020-12-28] MEDS ORDERED: Ondansetron 4 MG/2 ML SDV ONE ×2 (07:07)
[2020-12-28] MEDS ORDERED: propofoL 100 ML ONE (07:07)
[2020-12-28] MEDS ORDERED: Lidocaine 2% 5 ML SDV ONE (07:08)
[2020-12-28] MEDS ORDERED: fentaNYL 100 MCG/2 ML SDV ONE (07:08)
[2020-12-28] MEDS ORDERED: Sodium Chloride 0.9% 20 ML ONE (07:08)
[2020-12-28] MEDS ORDERED: Dexmedetomidine 200 MCG/2 ML SDV ONE (07:09)
[2020-12-28] MEDS ORDERED: Metoclopramide 10 MG/2 ML SDV ONE (07:14)
[2020-12-28] MEDS ORDERED: Glycopyrrolate 0.2 MG/ML SDV ONE (07:14)
[2020-12-28] MEDS ORDERED: Ondansetron 4 MG/2 ML SDV IVPUSH PRN (07:19)
[2020-12-28] MEDS ORDERED: Albuterol 0.083% 2.5 MG/3 ML Neb Soln NEB PRN (07:19)
[2020-12-28] MEDS ORDERED: Morphine 2 MG/ML SYRINGE IVPUSH PRN (07:19)
[2020-12-28] MEDS ORDERED: HYDROmorphone 1 MG/ML Syringe IVPUSH PRN (07:19)
[2020-12-28] MEDS ORDERED: Naloxone 0.4 MG/ML Syringe IVPUSH PRN (07:19)
[2020-12-28] MEDS ORDERED: Metoclopramide 10 MG/2 ML SDV IVPUSH PRN (07:19)
[2020-12-28] MEDS ORDERED: fentaNYL 100 MCG/2 ML SDV IVPUSH PRN (07:19)
--- NOTE | 2020-12-28 07:19 | PCM.PREANE ---
Preanesthetic Assessment - Anesthesia/Transfusion/Family Hx Anesthesia History: Prior Anesthesia Without Reaction Transfusion History: No Prior Transfusion(s) - Review of Systems General: No Symptoms Pulmonary: No Symptoms Cardiovascular: No Symptoms Gastrointestinal: No Symptoms Neurological: No Symptoms Other: Reports: None - Physical Assessment NPO Status Date: 12/28/20 NPO Status Time: 00:00 Vital Signs: Last Vital Signs Temp 95.7 F L 12/28/20 06:43 Pulse 71 12/28/20 06:43 Resp 15 12/28/20 06:43 BP 109/54 L 12/28/20 06:43 Pulse Ox 97 12/28/20 06:43 Height: 5 ft 7.5 in Weight: 313 lb ASA Class: 3 Mental Status: Alert & Oriented x3 Dentition: Reports: Broken Tooth/Teeth, Missing Tooth/Teeth, Caries Thyro-Mental Finger Breadths: 2 Mouth Opening Finger Breadths: 2 ROM/Head Extension: Full Lungs: Clear to Auscultation, Normal Respiratory Effort Cardiovascular: Regular Rate - Lab Values: Laboratory Last Values WBC 6.73 K/uL (4.0-11.0) 12/28/20 06:59 RBC 4.24 M/uL (4.30-5.90) L 12/28/20 06:59 Hgb 10.5 g/dL (12.0-16.0) L 12/28/20 06:59 Hct 32.7 % (36.0-46.0) L 12/28/20 06:59 MCV 77.1 fL (80.0-98.0) L 12/28/20 06:59 MCH 24.8 pg (27.0-32.0) L 12/28/20 06:59 MCHC 32.1 g/dL (31.0-37.0) 12/28/20 06:59 RDW Std Deviation 41.1 fl (28.0-62.0) 12/28/20 06:59 RDW Coeff of Gregoria 15 % (11.0-15.0) 12/28/20 06:59 Plt Count 304 K/uL (150-400) 12/28/20 06:59 MPV 9.60 fL (7.40-12.00) 12/28/20 06:59 Nucleated RBC % 0.0 /100WBC 12/28/20 06:59 Nucleated RBCs # 0 K/uL 12/28/20 06:59 - Allergies Allergies/Adverse Reactions: Allergies Allergy/AdvReac Type Severity Reaction Status Date / Time cat dander Allergy Difficulty Verified 12/23/20 08:42 Breathing dog dander Allergy Difficulty Verified 12/23/20 08:42 Breathing - Acknowledgements Anesthesia Type Planned: General Anesthesia Pt an Appropriate Candidate for the Planned Anesthesia: Yes Alternatives and Risks of Anesthesia Discussed w Pt/Guardian: Yes Pt/Guardian Understands and Agrees with Anesthesia Plan: Yes PreAnesthesia Questionnaire HEENT History: Reports: Impaired Vision, Other (See Below) Other HEENT History: 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 Cardiovascular History: Reports: None Respiratory History: Reports: None Gastrointestinal History: Reports: None Genitourinary History: Reports: None [employer] History: Reports: , Spontaneous Musculoskeletal History: Reports: None Neurological History: Reports: None Psychiatric History: Reports: None Endocrine/Metabolic History: Reports: Obesity/BMI 30+ Hematologic History: Reports: None Immunologic History: Reports: None Oncologic (Cancer) History: Reports: None Dermatologic History: Reports: None - Infectious Disease History Infectious Disease History: Reports: Chicken Pox - Past Surgical History Head Surgeries/Procedures: Reports: None HEENT Surgical History: Reports: Oral Surgery Cardiovascular Surgical History: Reports: None Respiratory Surgical History: Reports: None GI Surgical History: Reports: None Female Surgical History: Reports: Section Endocrine Surgical History: Reports: None Neurological Surgical History: Reports: None Musculoskeletal Surgical History: Reports: None Oncologic Surgical History: Reports: None Dermatological Surgical History: Reports: None - SUBSTANCE USE Tobacco Use Status *Q: Former Tobacco User Tobacco Use Within Last Twelve Months: No - HOME MEDS Home Medications: Home Meds Multivitamin 1 tab PO DAILY 12/23/20 [History] - CURRENT (IN HOUSE) MEDS Current Meds: Current Medications Lactated Ringer's (Ringers, Lactated) 1,000 mls @ 100 mls/hr IV ASDIRECTED ALISTAIR Last Admin: 12/28/20 07:03 Dose: 100 mls/hr Documented by: Discontinued Medications Dexamethasone (Dexamethasone 4 Mg/Ml 5 Ml Mdv) Confirm Administered Dose 20 mg .ROUTE .STK-MED ONE Stop: 12/28/20 07:08 Dexmedetomidine HCl (Dexmedetomidine 200 Mcg/2 Ml Sdv) Confirm Administered Dose 200 mcg .ROUTE .[employer]-MED ONE Stop: 12/28/20 07:10 Fentanyl (Fentanyl 100 Mcg/2 Ml Sdv) Confirm Administered Dose 100 mcg .ROUTE .[employer]-MED ONE Stop: 12/28/20 07:09 Glycopyrrolate (Glycopyrrolate 0.2 Mg/Ml Sdv) Confirm Administered Dose 0.2 mg .ROUTE .[employer]-MED ONE Stop: 12/28/20 07:15 Propofol (Diprivan 100 Ml) Confirm Administered Dose 100 mls @ as directed .ROUTE .[employer] ONE Stop: 12/28/20 07:08 Sodium Chloride (Normal Saline) Confirm Administered Dose 20 mls @ as directed .ROUTE .[employer] ONE Stop: 12/28/20 07:09 Lidocaine (Lidocaine 2% 5 Ml Sdv) Confirm Administered Dose 5 ml .ROUTE .[employer]-MED ONE Stop: 12/28/20 07:09 Metoclopramide HCl (Metoclopramide 10 Mg/2 Ml Sdv) Confirm Administered Dose 10 mg .ROUTE .[employer] ONE Stop: 12/28/20 07:15 Ondansetron HCl (Ondansetron 4 Mg/2 Ml Sdv) Confirm Administered Dose 4 mg .ROUTE .[employer] ONE Stop: 12/28/20 07:08 Ondansetron HCl (Ondansetron 4 Mg/2 Ml Sdv) Confirm Administered Dose 4 mg .ROUTE .[employer] ONE Stop: 12/28/20 07:08
[2020-12-28] MEDS ORDERED: Ketorolac 30 MG/ML SDV ONE (08:19)
[2020-12-28] MEDS ORDERED: Ketorolac 30 MG/ML SDV IVPUSH ONE (08:26)
[2020-12-28] MEDS ORDERED: Acetaminophen/HYDROcodone 325-5 MG Tab PO PRN (08:26)
--- NOTE | 2020-12-28 08:31 | PCM.OPNOTE ---
- General Post-Op/Procedure Note Date of Surgery/Procedure: 12/28/20 Operative Procedure(s): Loop electrosurgical excision procedure Findings: Normal-appearing cervix with minimal acetowhite changes and scant areas without uptake of Lugol's solution Pre Op Diagnosis: CLAUDINE 2 Post-Op Diagnosis: Same Anesthesia Technique: General LMA Primary Surgeon: Adilene Macias Anesthesia Provider: Oma Sterling Pathology: Ectocervix, stitch at 12:00 Fluid Replacement, Intraop: 300 EBL in mLs: 0 Complications: None Condition: Good Free Text/Narrative:: [id number] loop used
--- NOTE | 2020-12-28 08:46 | PCM.POSTAN ---
POST ANESTHESIA ASSESSMENT - MENTAL STATUS Mental Status: Alert, Oriented - VITAL SIGNS Vital Signs: Last Vital Signs Temp 37.2 C 12/28/20 08:27 Pulse 77 12/28/20 08:37 Resp 18 12/28/20 08:37 BP 120/71 12/28/20 08:37 Pulse Ox 91 L 12/28/20 08:37 - RESPIRATORY Respiratory Status: Respiratory Rate WNL, Airway Patent, O2 Saturation Stable - CARDIOVASCULAR CV Status: Pulse Rate WNL, Blood Pressure Stable - GASTROINTESTINAL GI Status: No Symptoms - POST OP HYDRATION Hydration Status: Adequate & Stable
--- NOTE | 2020-12-28 08:46 | PCM48HPAN ---
Post Anesthesia Note - EVALUATION WITHIN 48HRS OF ANESTHETIC Vital Signs in Normal Range: Yes Patient Participated in Evaluation: Yes Respiratory Function Stable: Yes Airway Patent: Yes Cardiovascular Function Stable: Yes Hydration Status Stable: Yes Pain Control Satisfactory: Yes Nausea and Vomiting Control Satisfactory: Yes Mental Status Recovered: Yes Vital Signs: Last Vital Signs Temp 37.2 C 12/28/20 08:27 Pulse 77 12/28/20 08:37 Resp 18 12/28/20 08:37 BP 120/71 12/28/20 08:37 Pulse Ox 91 L 12/28/20 08:37
--- NOTE | 2020-12-28 11:51 | OR ---
SURGEON: Adilene Macias MD DATE OF PROCEDURE: 12/28/2020 PREOPERATIVE DIAGNOSIS: A 30-year-old with cervical intraepithelial neoplasia 2 on colposcopy. POSTOPERATIVE DIAGNOSIS: A 30-year-old with cervical intraepithelial neoplasia 2 on colposcopy. PROCEDURE: Loop electrosurgical excision procedure. PRIMARY SURGEON: Adilene Macias MD ANESTHESIA: LMA by Oma Rios. INTRAVENOUS FLUIDS: 300 mL. ESTIMATED BLOOD LOSS: Zero. FINDINGS: Grossly normal-appearing cervix with minimal acetowhite changes and minimal areas of no uptake of Lugol solution. INDICATIONS: This is a 30-year-old who had a low-grade squamous intraepithelial lesion, Pap with positive HPV virus. She underwent colposcopy outpatient with cervical biopsy showing CLAUDINE-2. The risks, benefits, and alternatives of loop electrosurgical excision procedure were reviewed with the patient prior to surgery. The patient was agreeable to undergoing this procedure per ASCCP guidelines for cervical dysplasia. DESCRIPTION OF PROCEDURE: The patient was taken to the operating room where LMA was obtained. She was placed in dorsal lithotomy position with legs in Yellofin stirrups. She was prepared and draped in normal sterile fashion. An insulated bivalve speculum was inserted into the vagina to expose the cervix. The cervix was swabbed with acetic acid and minimal areas of acetowhite changes were noted. The cervix was infiltrated with 1% lidocaine without epinephrine. Lugol solution was applied to the cervix, and there were scant areas with minimal uptake. A 10 x 10 mm loop electrode was then obtained, and cone biopsy was carried out. Scant bleeding was noted. The LEEP bed was cauterized with the ball electrode. Monsel solution was applied to the LEEP bed. Hemostasis was observed. All instruments were removed from the vagina. The patient was awakened and taken to recovery room in stable condition. [id number] / MODL /[id number] [facility] DIVISIONCharisma
== END 2020-12-28 09:25 | disposition home or self-care (01) ==
LOC: MW.SDS 06:35
PROVIDERS: ATTEND Obstetrics & Gynecology
DX: N87.0 Mild cervical dysplasia (principal); Z98.890 Other specified postprocedural states; Z87.891 Personal history of nicotine dependence
CPT/HCPCS: 36415; 57522; 84703; 85027; 88307; J1100; J2704; J3490; J7120; 00940; J1885; J2405; J2765; J3010

== ENCOUNTER 2021-09-06 05:11 | Inpatient (IN) | payer OTHER ==
[2021-09-06] MEDS ORDERED: Sodium Chloride 0.9% 20 ML SDV IV PRN (05:19)
[2021-09-06] MEDS ORDERED: Sodium Chloride 0.9% 10 ML Syringe FLUSH PRN (05:19)
[2021-09-06] MEDS ORDERED: Sodium Chloride 0.9% 2.5 ML Syringe FLUSH PRN (05:19)
[2021-09-06] MEDS ORDERED: Oxytocin/0.9 % Sodium Chloride 30 UNIT/500 ML BAG IV SCH (05:30)
[2021-09-06] MEDS: Lactated Ringers 1,000 ML IV SCH ×2 (05:55→07:08)
[2021-09-06] MEDS ORDERED: Morphine 4 MG/ML VIAL IVPUSH PRN ×2 (06:00→23:29)
[2021-09-06] MEDS ORDERED: Albuterol 0.083% 2.5 MG/3 ML Neb Soln NEB PRN (06:00)
[2021-09-06] MEDS ORDERED: Metoclopramide 10 MG/2 ML SDV IVPUSH PRN (06:00)
[2021-09-06] MEDS ORDERED: Ondansetron 4 MG/2 ML SDV IVPUSH PRN ×2 (06:00→09:15)
[2021-09-06] MEDS ORDERED: HYDROmorphone 2 MG/ML Syringe IVPUSH PRN (06:00)
[2021-09-06] MEDS ORDERED: fentaNYL 100 MCG/2 ML SDV IVPUSH PRN (06:00)
[2021-09-06] MEDS ORDERED: Naloxone 0.4 MG/ML SDV IVPUSH PRN (06:00)
[2021-09-06] MEDS ORDERED: ePHEDrine 50 MG/ML SDV IVPUSH PRN (06:00)
[2021-09-06] MEDS ORDERED: Oxytocin 10 Units/1 ML SDV ONE (06:34)
[2021-09-06] MEDS ORDERED: Ondansetron 4 MG/2 ML SDV ONE (06:34)
[2021-09-06] MEDS ORDERED: ceFAZolin 1 GM Vial ONE ×2 (06:34→07:52)
[2021-09-06] MEDS ORDERED: Phenylephrine 1% 10 MG/ML SDV ONE (06:34)
[2021-09-06] MEDS ORDERED: Lidocaine 2% 5 ML SDV ONE (06:34)
[2021-09-06] MEDS ORDERED: fentaNYL 100 MCG/2 ML SDV ONE (06:34)
[2021-09-06] MEDS ORDERED: Dexamethasone 4 MG/ML 5 ML MDV ONE (06:34)
[2021-09-06] MEDS ORDERED: EPINEPHrine 1 MG/1 ML Amp ONE (06:35)
[2021-09-06] MEDS ORDERED: Ketorolac 30 MG/ML SDV ONE (06:40)
[2021-09-06] MEDS ORDERED: Water For Injection, Sterile 20 ML ONE (06:42)
[2021-09-06] MEDS ORDERED: Ropivacaine 0.5% 5 MG/ML 30 ML SDV ONE ×2 (06:49)
[2021-09-06] MEDS ORDERED: Citric Acid/Sodium Citrate Solution 30 ML Cup PO ONE (07:19)
[2021-09-06] MEDS ORDERED: ceFAZolin 2 GM in Premix Bag 1 BAG IV ONE (07:19)
[2021-09-06] MEDS ORDERED: Octyl 2-Cyanoacrylate 1 Tube ONE (07:40)
[2021-09-06] MEDS ORDERED: Oxytocin 10 Units/1 ML SDV IM PRN (09:15)
[2021-09-06] MEDS ORDERED: Lactated Ringers 1,000 ML IV SCH (09:15)
[2021-09-06] MEDS ORDERED: diphenhydrAMINE 50 MG/ML SDV IVPUSH PRN (09:15)
[2021-09-06] MEDS ORDERED: Lanolin 100% Cream 7 GM Tube TOP PRN (09:15)
[2021-09-06] MEDS ORDERED: Misoprostol 200 MCG Tab RECTAL PRN (09:15)
[2021-09-06] MEDS ORDERED: Ibuprofen 800 MG Tab PO PRN (09:15)
[2021-09-06] MEDS ORDERED: Tranexamic Acid 1,000 MG in Sodium Chloride 0.9% 100 ML IV PRN (09:15)
[2021-09-06] MEDS ORDERED: Bisacodyl 10 MG Supp RECTAL PRN (09:15)
[2021-09-06] MEDS ORDERED: Acetaminophen/oxyCODONE 325-5 MG Tab PO PRN (09:15)
[2021-09-06] MEDS: Cephalexin 500 MG Cap PO SCH ×3 (14:29→23:51)
[2021-09-06] MEDS: Acetaminophen 1,000 MG in Premix Bag 1 BAG IV SCH ×2 (15:08→21:04)
[2021-09-06] MEDS: Docusate Sodium 100 MG Cap PO SCH (21:04)
[2021-09-06] MEDS ORDERED: Ketorolac 30 MG/ML SDV IVPUSH ONE (23:28)
[2021-09-07] MEDS: Acetaminophen 1,000 MG in Premix Bag 1 BAG IV SCH (03:06)
[2021-09-07] MEDS: Cephalexin 500 MG Cap PO SCH ×3 (05:32→18:36)
[2021-09-07] MEDS: Prenatal Multivitamin with Calcium/Folic Acid/Iron Tab PO SCH (09:06)
[2021-09-07] MEDS: Docusate Sodium 100 MG Cap PO SCH ×2 (09:06→20:42)
[2021-09-07] MEDS: Acetaminophen/oxyCODONE 325-5 MG Tab PO PRN (20:43)
[2021-09-08] MEDS: Cephalexin 500 MG Cap PO SCH ×2 (00:09→06:11)
[2021-09-08] MEDS: Acetaminophen/oxyCODONE 325-5 MG Tab PO PRN ×2 (04:10→09:35)
[2021-09-08] MEDS: Prenatal Multivitamin with Calcium/Folic Acid/Iron Tab PO SCH (08:17)
[2021-09-08] MEDS: Docusate Sodium 100 MG Cap PO SCH (08:17)
== END 2021-09-08 11:15 | disposition home or self-care (01) | DRG 788 ==
LOC: MW.OB 05:11
PROVIDERS: ADMIT Obstetrics & Gynecology; ATTEND Obstetrics & Gynecology
PROC: 10D00Z1 Extraction of Products of Conception, Low, Open Approach (ICD-10-PCS; principal; 2021-09-06)
DX: O34.211 Maternal care for low transverse scar from previous cesarean delivery (principal); O99.02 Anemia complicating childbirth; D64.9 Anemia, unspecified; O99.214 Obesity complicating childbirth; E66.01 Morbid (severe) obesity due to excess calories; Z3A.39 39 weeks gestation of pregnancy; Z37.0 Single live birth; L73.2 Hidradenitis suppurativa; Z20.822 Contact with and (suspected) exposure to COVID-19
CPT/HCPCS: 01961; 36415; 59025; 64488; 82803; 85014; 85018; 85027; 86592; 86850; 86900; 86901; A9270-GY; J0131; J0171; J0690; J1100; J1790; J1885; J2270; J2370; J2405; J2590; J2795; J3010; J7120; U0002